=== PATIENT | male | born 1935 | race African-American/Black ===

== ENCOUNTER 2018-12-13 17:36 | Emergency (ER) | payer MEDICARE ==
[~2018-12-13 17:36] MED LIST: CENTRUM SILVER1 TAB PO; COMBIGAN0.2 MG/0.5 OP; LATANOPROST0.005 % OP; PRAVASTATIN SOD20 MG PO
== END 2018-12-13 17:43 | disposition expired ==
LOC: ED 17:36
PROC: 5A12012 Performance of Cardiac Output, Single, Manual (ICD-10-PCS; principal; 2018-12-13)
PROC: 0BH17EZ Insertion of Endotracheal Airway into Trachea, Via Natural or Artificial Opening (ICD-10-PCS; 2018-12-13)
DX: I46.9 Cardiac arrest, cause unspecified (principal)